=== PATIENT | male | born 1965 | race Caucasian/White ===

== ENCOUNTER 2019-07-22 08:47 | Emergency (ER) | payer BC, OTHER ==
--- OUTSIDE RECORDS SUMMARY | 2019-07-22 08:57 | XMS REPORT | Summary of Care ---
:1965 Author Organization [facility] Address [address] [id number] Care Team Providers Name Role Phone Pcp, No Primary Care Provider Unavailable Encounter Details Date Type Department Care Team Description 05/27/2019 Hospital Encounter [facility] Clinical Status post simultaneous kidney and pancreas transplant; Pathology at Kidney replaced by transplant; [facility] Pancreas replaced by transplant; [address] Encounter for long-term (current) use of other medications; [place] [address] Primary immune deficiency disorder; [phone] Chronic kidney disease, stage V Allergies No Known Allergiesdocumented as of this encounter (statuses as of 05/28/2019) Medications Medication Sig Dispensed Refills Start Date End Date Status Cholecalciferol Take 400 Units 0 Active (VITAMIN D) 400 UNITS by mouth daily. tablet Mycophenolate Mofetil Take 4 capsules 720 capsule 3 04/04/2019 04/03/2020 Active 250 MG Oral Capsule by mouth Two (CELLCEPT) Times Daily predniSONE 5 MG Oral Take 1 tablet 90 tablet 3 04/04/2019 04/03/2020 Active Tablet (DELTASONE) by mouth daily Tacrolimus 1 MG Oral Take 3 capsules 540 capsule 3 04/04/2019 04/03/2020 Active Capsule (PROGRAF) by mouth Two Times Daily documented as of this encounter (statuses as of 05/28/2019) Active Problems Problem Noted Date Sepsis 11/18/2016 Status post simultaneous kidney and pancreas transplant 03/14/2016 Hypertension 12/08/2015 Failed kidney transplant 12/08/2015 Pancreas transplanted 11/1995 pancreatic enzymes empty into bladder 12/08/2015 ESRD (end stage renal disease) on dialysis secondary to DM typeI failed 2015 renal transplant Secondary hyperparathyroidism (of renal origin) 12/08/2015 Chronic rejection of kidney and pancreas 2012 Diabetes mellitus type I Overview: no known retinopath, + neurogenic bladder Hypercholesterolemia Kidney stone Neurogenic bladder Overview: requires self cath documented as of this encounter (statuses as of 05/28/2019) Resolved Problems Problem Noted Date Resolved Date Pre-transplant evaluation for kidney and pancreas transplant 03/12/201603/14 documented as of this encounter (statuses as of 05/28/2019) Immunizations Name Administration Dates Next Due Influenza Quad IM Pres Free (0.5 mL dose) 05/27/2019 05/27/2020 documented as of this encounter Social History Tobacco Use Types Packs/Day Years Used Date Former Smoker Cigarettes 1 15 Smokeless Tobacco: Former User Quit: 05/22/1995 Alcohol Use Drinks/Week oz/Week Comments No 0 Standard drinks or equivalent 0.0 very rarely due to fluid restriction for dialysis Sex Assigned at Date Recorded Not on file Job Start Date Occupation Industry Not on file Not on file Not on file Travel History Travel Start Travel End No recent travel history available. documented as of this encounter Last Filed Vital Signs Not on filedocumented in this encounter Plan of Treatment Date Type Specialty Care Team Description 09/25/2019 Follow-Up Transplant Daisy Dawn, LAUREN [address] [place] [address] [phone] Name Type Priority Associated Diagnoses Date/Time Urine Culture ; Microbiology STAT Status post simultaneous 05/27/2019 8: 18 AM Urine kidney and pancreas EST transplant Kidney replaced by transplant Pancreas replaced by transplant Encounter for long-term (current) use of other medications Primary immune deficiency disorder Chronic kidney disease, stage V Name Type Priority Associated Diagnoses Order Schedule Urine Culture Microbiology Timed Status post simultaneous As Needed for 1 kidney and pancreas Occurrences starting transplant 05/27/2019 until Kidney replaced by 05/27/2019 transplant Pancreas replaced by transplant Encounter for long-term (current) use of other medications Primary immune deficiency disorder Chronic kidney disease, stage V Health Maintenance Due Date Last Done Comments MMR Vaccines (1 of 1 - 1967 Standard series) Varicella Vaccines (1 of 2 - 1967 2-dose childhood series) Pneumococcal Vaccine: 1972 Pediatrics (0 to 5 Years) and At-Risk Patients (6 to 64 Years) (1 of 3 - PCV13) DTaP,Tdap,and Td Vaccines (1 1973 - Tdap) Hepatitis B Vaccines (1 of 3 1985 - Risk 3-dose series) Colon Cancer Screening 10 yrs 2016 Pneumococcal Vaccine: 65+ 2031 Years (1 of 2 - PCV13) HIV Screening Completed 03/12/2016, 01/19/2016 Influenza Vaccine Completed 05/27/2019 HIB Vaccines Aged Out No longer eligible based on patient's age to complete this topic Hepatitis A Vaccines Aged Out No longer eligible based on patient's age to complete this topic IPV Vaccines Aged Out No longer eligible based on patient's age to complete this topic documented as of this encounter Procedures Procedure Name Priority Date/Time Associated Diagnosis Comments URINE RANDOM TP/CRE STAT 05/27/2019 8:33 Status post Results for this RATIO AM EST simultaneous kidney procedure are in and pancreas the results transplant section. Kidney replaced by transplant Pancreas replaced by transplant Encounter for long-term (current) use of other medications Primary immune deficiency disorder Chronic kidney disease, stage V URINALYSIS WITH STAT 05/27/2019 8:33 Status post Results for this MICROSCOPIC AM EST simultaneous kidney procedure are in and pancreas the results transplant section. Kidney replaced by transplant Pancreas replaced by transplant Encounter for long-term (current) use of other medications Primary immune deficiency disorder Chronic kidney disease, stage V DSA SCREEN, HOLD STAT 05/27/2019 8:20 Status post Results for this AM EST simultaneous kidney procedure are in and pancreas the results transplant section. TACROLIMUS TROUGH STAT 05/27/2019 8:20 Status post Results for this AM EST simultaneous kidney procedure are in and pancreas the results transplant section. Kidney replaced by transplant Pancreas replaced by transplant Encounter for long-term (current) use of other medications Primary immune deficiency disorder Chronic kidney disease, stage V CBC AND DIFFERENTIAL STAT 05/27/2019 8:20 Status post Results for this AM EST simultaneous kidney procedure are in and pancreas the results transplant section. Kidney replaced by transplant Pancreas replaced by transplant Encounter for long-term (current) use of other medications Primary immune deficiency disorder Chronic kidney disease, stage V PHOSPHORUS LEVEL STAT 05/27/2019 8:20 Status post Results for this AM EST simultaneous kidney procedure are in and pancreas the results transplant section. Kidney replaced by transplant Pancreas replaced by transplant Encounter for long-term (current) use of other medications Primary immune deficiency disorder Chronic kidney disease, stage V MAGNESIUM LEVEL STAT 05/27/2019 8:20 Status post Results for this AM EST simultaneous kidney procedure are in and pancreas the results transplant section. Kidney replaced by transplant Pancreas replaced by transplant Encounter for long-term (current) use of other medications Primary immune deficiency disorder Chronic kidney disease, stage V LIPASE LEVEL STAT 05/27/2019 8:20 Status post Results for this AM EST simultaneous kidney procedure are in and pancreas the results transplant section. Kidney replaced by transplant Pancreas replaced by transplant Encounter for long-term (current) use of other medications Primary immune deficiency disorder Chronic kidney disease, stage V AMYLASE LEVEL STAT 05/27/2019 8:20 Status post Results for this AM EST simultaneous kidney procedure are in and pancreas the results transplant section. Kidney replaced by transplant Pancreas replaced by transplant Encounter for long-term (current) use of other medications Primary immune deficiency disorder Chronic kidney disease, stage V BASIC METABOLIC PANEL STAT 05/27/2019 8:20 Status post Results for this AM EST simultaneous kidney procedure are in and pancreas the results transplant section. Kidney replaced by transplant Pancreas replaced by transplant Encounter for long-term (current) use of other medications Primary immune deficiency disorder Chronic kidney disease, stage V documented in this encounter Results Urinalysis with microscopic (05/27/2019 8:33 AM EST) Color Yellow [facility] Pathology Clarity Cloudy [facility] Clin Pathology Specific [place] 1.014 1.003 - 1.030 [facility] PH Urine 6.0 5.0 - 8.0 [facility] Pathology Total Protein UA 30 (A) Negative mg/dL [facility]ology Glucose UA Negative Negative mg/dL [facility] Clin Pathology Ketone Urine Negative Negative mg/dL [facility]ology Bilirubin Negative Negative [facility] Clin Pathology Hemoglobin, Urine 2+ (A) Negative [facility] Pathology Leukocyte Esterase 3+ (A) Negative [place]/uL [facility] Pathology Nitrite Positive (A) Negative [facility] Pathology WBC 313 (H) 0 - 5 /HPF [facility] Clin Pathology RBC 34 (H) 0 - 3 /HPF [facility] Clin Pathology Bacteria, UA 1+ (A) None /HPF [facility] Clin Pathology Squam Epithel, UA <1 (A) None /HPF [facility] Clin Pathology Mucus, UA Trace (A) None /LPF [facility] Clin Pathology Specimen Urine Performing Organization Address City/State/Zipcode Phone Number [facility] CLINICAL PATHOLOGY [address] [place] [address] [facility] Clin [address] [place] [address] Pathology Total Protein/Creatine Ratio, Urine, Random (05/27/2019 8:33 AM EST) Total Protein, Urine 34 mg/dl [facility] Clin Pathology Urinary Creat 69.8 mg/dL [facility] Clin Pathology Urinary Prot/Creat 0.49 mg/mg{creat} [facility] Ratio Clin Pathology Specimen Urine Performing Organization Address [facility] Phone Number [facility] CLINICAL PATHOLOGY [address] [place] [address] [facility] Clin [address] [place] [phone] Pathology DSA SCREEN, HOLD (05/27/2019 8:20 AM EST) DSA Screen, Hold Specimen Held For [facility] CLINICAL PATHOLOGY Specimen Serum Performing Organization Address [facility] Phone Number [facility] CL[facility]ICAL PATHOLOG[facility] [address] [place] [address] Amylase (05/27/2019 8:20 AM EST) Amylase 115 (H) 28 - 103 U/L [facility] Pathology Specimen Plasma Performing Organization Address [facility] Phone Number [facility] CLINICAL PATHOLOGY [address] [place] [address] [facility] [address] [place] [address] Pathology BMP Basic metabolic panel (05/27/2019 8:20 AM EST) Bicarbonate 22 22 - 29 mmol/L [facility] Clin Pathology Chloride 103 98 - 107 mmol/L [facility] Clin Pathology Creatinine 1.44 (H) 0.70 - 1.20 [facility] mg/dL Univ Clin Pathology Glucose 83 70 - 140 mg/dL [facility] Clin Pathology Potassium 4.7 3.4 - 5.1 [facility] mmol/L Univ Clin Pathology Sodium 139 136 - 145 [facility] mmol/L Univ Clin Pathology Blood Urea Nitrogen 28 (H) 6 - 20 mg/dL [facility] Anion Gap 14 8 - 15 mmol/L [facility] Clin Pathology Osmolality, Irvin 292 275 - 300 [facility] mosm/kg Univ Clin Pathology BUN/Cre Ratio 19 [facility] Clin Pathology Calcium 9.4 8.6 - 10.0 [facility] mg/dL Univ Clin Pathology GFR Non 54 (L) >60 [facility] [place] 2009 CDK-EPI mL/min/1.73m2 Univ Clin Pathology GFR 63 >60 [facility] 2009 CKD-EPI mL/min/1.73m2 [facility] Clin Pathology Specimen Plasma Performing Organization Address City/State/Zipcode Phone Number [facility] CLINICAL PATHOLOGY [address] [place] [address] [facility] [address] [place] [address] Pathology CBC and differential (05/27/2019 8:20 AM EST) White Blood Cell 4.9 4 - 10 [facility] 10*3/uL Univ Clin Pathology Red Blood Cell 5.40 4.6 - 6.1 [facility] 10*6/uL Univ Clin Pathology Hemoglobin 15.9 13.5 - 18 [facility] g/dL Univ Clin Pathology Hematocrit 48.5 41 - 53 % [facility] Clin Pathology Mean Cell Volume 89.8 80 - 96 fL [facility] Clin Pathology Mean Cell Hemoglobin 29.5 27 - 33 pg [facility] Clin Pathology Mean Cell Hgb Conc 32.8 32.0 - 36.0 [facility] g/dL Univ Clin Pathology Red Cell Dist Width 15.0 (H) 11.5 - 14.5 % [facility] Clin Pathology Platelet Count 166 150 - 400 [facility] 10*3/uL Univ Clin Pathology Differential Type Automated Diff [facility] Clin Pathology Neutrophil 78 % [facility] Lymphocyte 7 % [facility]ology Monocyte 12 % [facility]ology Eosinophil 2 % [facility] Pathology Basophil 1 % [facility] Clin Pathology Abs Neutrophil 3.87 1.8 - 7.0 [facility] 10*3/uL Univ Clin Pathology Abs Lymphocyte 0.36 (L) 1.2 - 4.0 [facility] 10*3/uL Univ Clin Pathology Abs Monocyte 0.59 0 - 0.8 [facility] 10*3/uL Univ Clin Pathology Abs Eosinophil 0.09 0 - 0.5 [facility] 10*3/uL Univ Clin Pathology Abs Basophil 0.04 0 - 0.2 [facility] 10*3/uL Univ Clin Pathology Nucleated Red Blood 0 0 - 0 [facility] Cells /100{WBCs} Univ Clin Pathology Specimen EDTA Whole Blood Performing Organization Address [facility] Phone Number [facility] [address] [place] [address] [facility] [address] [place] [address] Pathology Lipase (05/27/2019 8:20 AM EST) Lipase 25 13 - 60 U/L [facility] Clin Pathology Specimen Plasma Performing Organization Address [facility] Phone Number [facility] PATHOLOG[facility] [address] [place] [address] [phone] [facility] [address] [place] [phone] Pathology Magnesium (05/27/2019 8:20 AM EST) Magnesium 1.6 1.6 - 2.6 mg/dL [facility] Clin Pathology Specimen Plasma Performing Organization Address [facility] Phone Number [facility] CL[facility]ICAL PATHOLOG[facility] [address] [place] [address] [facility] [address] [place] [phone] Pathology Phosphorus (05/27/2019 8:20 AM EST) Phosphorus 3.1 2.5 - 4.5 mg/dL [facility] Clin Pathology Specimen Plasma Performing Organization Address [facility] Phone Number [facility] CL[facility] [address] [place] [address] [facility] [address] [place] [address] Pathology Tacrolimus Trough (05/27/2019 8:20 AM EST) [id number] 10.9 ng/mL [facility] Comment: Clin Pathology Renal Transplant Target Values Immediate post-transplant: 10 - 15 ng/mL First 6 months: 6 - 15 ng/mL Greater than 6 months: 6 - 15 ng/mL Specimen EDTA Whole Blood Performing Organization Address City/State/Zipcode Phone Number [facility] CLINICAL PATHOLOGY [address] [place] [address] [facility] [address] [place] [address] Pathology documented in this encounter Visit Diagnoses Diagnosis Status post simultaneous kidney and pancreas transplant Kidney replaced by transplant Pancreas replaced by transplant Encounter for long-term (current) use of other medications Primary immune deficiency disorder Other specified disorders involving the immune mechanism Chronic kidney disease, stage V Chronic kidney disease, Stage V documented in this encounter Additional Health Concerns Infection Noted Time Resolved Time MRSA (Methicillin Resistant Staphylococcus 03/15/2016 8:20 AM EDT aureus) documented as of this encounter
[2019-07-22 09:25] VITALS: BP 147/89
--- NOTE | 2019-07-22 09:37 | UC ---
Respiratory Complaint HPI - HPI Summary HPI Summary: 54-year-old male who has had cold symptoms since Monday with nonproductive cough and some wheezing. He is a smoker. - History of Current Complaint Chief Complaint: UCGeneralIllness Stated Complaint: COUGH Time Seen by Provider: 07/22/19 09:17 Hx Obtained From: Patient Onset/Duration: Gradual Onset Severity Initially: Moderate Severity Currently: Mild Pain Intensity: 0 Character: Cough: Nonproductive Alleviating Factors: Nothing Associated Signs And Symptoms: Positive: URI, Nasal Congestion - Allergies/Home Medications Allergies/Adverse Reactions: Allergies Allergy/AdvReac Type Severity Reaction Status Date / Time No Known Allergies Allergy Verified 07/22/19 09:16 Home Medications: Home Medications Albuterol HFA INHALER* [Ventolin HFA Inhaler*] 2 puff INH Q4H PRN 5 Days #1 mdi 07/22/19 [Rx] Benzonatate CAP* [Tessalon 100 MG CAP*] 100 mg PO TID PRN #21 cap 07/22/19 [Rx] Dextromethorphan Polistirex [Delsym] 1 dose PO ONCE 07/22/19 [History Confirmed 07/22/19] Dm/Acetaminophen/Doxylamine [Nighttime Cold-Flu Rlf Sftgl] 1 dose PO ONCE [History Confirmed 07/22/19] Mycophenolate Mofetil [Cellcept] 1,000 mg PO BID 07/22/19 [History Confirmed 07/11] Tacrolimus [Tacrolimus 1 MG-] 3 mg PO BID 07/22/19 [History Confirmed 07/22/19] predniSONE [Prednisone 5 MG TAB] 5 mg PO DAILY 07/22/19 [History Confirmed 07/21] PMH/Surg Hx/FS Hx/Imm Hx Previously Healthy: Yes GI/ History: Renal Disease - Surgical History Surgical History: Yes Surgery Procedure, Year, and Place: Kidney and pancreas transplant 1995, 2015. bilateral dialysis fistuals - neither are working - Family History Known Family History: Positive: Unknown - Social History Lives: With Family Alcohol Use: None Substance Use Type: None Smoking Status (MU): Heavy Every Day Tobacco Smoker Amount Used/How Often: 1 ppd Review of Systems All Other Systems Reviewed And Are Negative: Yes ENT: Positive: Nasal Discharge, Sinus Congestion Respiratory: Positive: Cough - Nonproductive cough Is Patient Immunocompromised?: No Physical Exam Triage Information Reviewed: Yes Appearance: Well-Appearing, No Pain Distress, Well-Nourished Vital Signs: Initial Vital Signs Temp 98 F 07/22/19 09:18 Pulse 95 07/22/19 09:18 Resp 18 07/22/19 09:18 BP 147/89 07/22/19 09:18 Pulse Ox 97 07/22/19 09:18 Vital Signs Reviewed: Yes Eyes: Positive: Conjunctiva Clear ENT: Positive: Pharynx normal, Nasal congestion, Nasal drainage - Clear nasal coryza, TMs normal, Uvula midline Neck: Positive: Supple, Nontender, No Lymphadenopathy Respiratory: Positive: No respiratory distress, No accessory muscle use, Rhonchi , Wheezing - Mild rhonchi with one small expiratory wheeze with forced expiration left lower lobe posteriorly. Cardiovascular: Positive: RRR, No Murmur, Pulses Normal, Brisk Capillary Refill Musculoskeletal Exam: Normal Neurological Exam: Normal Psychological Exam: Normal Skin Exam: Normal Respiratory Course/Dx - Course Course Of Treatment: Duoneb tx: The patient had complete clearing of his lung gilbert with the DuoNeb treatment and feels like he is taking better breath. At this point in time I feel this is a viral upper respiratory illness. He was advised to stop smoking. He would like to try an albuterol inhaler as opposed to an increase in prednisone, which he takes 5 mg daily because of his history of kidney and pancreas transplantation. I don't feel at this point he needs an antibiotic however he is to get rechecked in a few days if he has any worsening symptoms or no improvement. The patient is agreeable to this plan of action. 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 Patient does not appear ill and he is nontoxic at this point in time. - Differential Dx/Diagnosis Provider Diagnosis: Bronchitis Discharge ED - Sign-Out/Discharge Documenting (check all that apply): Patient Departure All imaging exams completed and their final reports reviewed: No Studies - Discharge Plan Condition: Good Disposition: HOME Prescriptions: Albuterol HFA INHALER* [Ventolin HFA Inhaler*] 2 puff INH Q4H PRN 5 Days #1 mdi PRN Reason: Cough Benzonatate CAP* [Tessalon 100 MG CAP*] 100 mg PO TID PRN #21 cap PRN Reason: Cough Patient Education Materials: Acute Bronchitis (ED) Referrals: [facility] [Outside] No Primary Care Phys,NOPCP [Primary Care Provider] - Additional Instructions: Increase fluids, use your albuterol inhaler 2 puffs every 4-6 hours while awake. Definite follow-up in 3 or 4 days if no improvement or if worsening symptoms. Stop smoking - Billing Disposition and Condition Condition: GOOD Disposition: Home
[2019-07-22] MEDS ORDERED: Albuterol/Ipratropium NEB.SOL* Albuterol 2.5 MG/Ipratropium 0.5 MG 3 ML INH ONE (09:41)
== END 2019-07-22 10:14 | disposition home or self-care (01) ==
LOC: UCCORT 08:47
DX: J40 Bronchitis, not specified as acute or chronic (principal); F17.210 Nicotine dependence, cigarettes, uncomplicated; Z94.0 Kidney transplant status; Z94.83 Pancreas transplant status; Z99.2 Dependence on renal dialysis; Z79.899 Other long term (current) drug therapy
CPT/HCPCS: 99202; A9270-GY; G0463

== ENCOUNTER 2019-08-06 07:34 | Emergency (ER) | payer OTHER ==
[2019-08-06 08:02] VITALS: BP 155/102
--- NOTE | 2019-08-06 08:44 | UC ---
Respiratory Complaint HPI - HPI Summary HPI Summary: pain under ribs x 3 days pain is 7 out 10 , worse by lying down , better with sitting up an leaning forward denies and radiation of the pain , had bronchitis 2/ 3 weeks ago, with a lot of coughing cough is better but having sever pain under both rib cage , denies any chest pain , no sob no fever, no chills , no n/v/d/c - History of Current Complaint Chief Complaint: UCGeneralIllness Stated Complaint: PAIN UNDER RIBS Time Seen by Provider: 08/06/19 07:53 Hx Obtained From: Patient Onset/Duration: Gradual Onset, Lasting Days - 3, Still Present Timing: Constant Severity Initially: Moderate Severity Currently: Severe Pain Intensity: 7 Character: Cough: Nonproductive Aggravating Factors: Other - lying down Alleviating Factors: Other - sitting up Associated Signs And Symptoms: Negative: Dyspnea, Fever, Chills, Wheezing, URI, Nasal Congestion - Allergies/Home Medications Allergies/Adverse Reactions: Allergies Allergy/AdvReac Type Severity Reaction Status Date / Time No Known Allergies Allergy Verified 08/06/19 07:51 Home Medications: Home Medications Albuterol HFA INHALER* [Ventolin HFA Inhaler*] 2 puff INH Q4H PRN 5 Days #1 mdi 07/22/19 [Rx Confirmed 08/06/19] Benzonatate CAP* [Tessalon 100 MG CAP*] 100 mg PO TID PRN #21 cap 07/22/19 [Rx Confirmed 08/06/19] Mycophenolate Mofetil [Cellcept] 1,000 mg PO BID 07/22/19 [History Confirmed ] Tacrolimus [Tacrolimus 1 MG-] 3 mg PO BID 07/22/19 [History Confirmed 08/06/19] predniSONE [Prednisone 5 MG TAB] 5 mg PO DAILY 07/22/19 [History Confirmed 08/05] PMH/Surg Hx/FS Hx/Imm Hx - Additional Past Medical History Additional PMH: kidney and pancreas transplant [ End ] Endocrine History: Diabetes Cardiovascular History: Hypertension - Surgical History Surgical History: Yes Surgery Procedure, Year, and Place: Kidney and pancreas transplant 1995, 2015. bilateral dialysis fistuals - neither are working - Family History Known Family History: Positive: Unknown, Non-Contributory - Social History Alcohol Use: None Substance Use Type: None Smoking Status (MU): Heavy Every Day Tobacco Smoker Type: Cigarettes Amount Used/How Often: 1 ppd Household Exposure Type: Cigarettes Review of Systems All Other Systems Reviewed And Are Negative: Yes Is Patient Immunocompromised?: No Physical Exam Triage Information Reviewed: Yes Appearance: Well-Appearing, No Pain Distress, Obese Vital Signs: Initial Vital Signs Temp 97.9 F 08/06/19 07:55 Pulse 91 08/06/19 07:55 Resp 18 08/06/19 07:55 BP 155/102 08/06/19 07:55 Pulse Ox 98 08/06/19 07:55 Vital Signs Reviewed: Yes Eye Exam: Normal Eyes: Positive: Conjunctiva Clear ENT: Positive: Normal ENT inspection, Hearing grossly normal, Pharynx normal Neck: Positive: Supple, Nontender, No Lymphadenopathy Respiratory: Positive: Chest non-tender, Lungs clear, Normal breath sounds Cardiovascular: Positive: RRR, No Murmur, Pulses Normal Abdominal Exam: Normal Abdomen Description: Positive: Nontender, Soft. Negative: CVA Tenderness (R), CVA Tenderness (L), Distended, Guarding Bowel Sounds: Positive: Present Skin Exam: Normal Diagnostics - Radiology No standard instances Radiology Interpretation Completed By: Radiologist Summary of Radiographic Findings: us Aorta: no AAA. chest xray : NAD - EKG Cardiac Rate: NL Cardiac Rhythm: Sinus: Normal Ectopy: None ST Segment: Normal Respiratory Course/Dx - Course Course Of Treatment: htn: monitor your bp daily , follow up with your pcp - Differential Dx/Diagnosis Provider Diagnosis: Pleurisy, Hypertension Discharge ED - Sign-Out/Discharge Documenting (check all that apply): Patient Departure All imaging exams completed and their final reports reviewed: Yes - Discharge Plan Condition: Stable Disposition: HOME Patient Education Materials: Pleurisy (ED) Referrals: No Primary Care Phys,NOPCP [Primary Care Provider] - 5 Days - Billing Disposition and Condition Condition: STABLE Disposition: Home
== END 2019-08-06 09:29 | disposition home or self-care (01) ==
LOC: UCCORT 07:34
DX: I10 Essential (primary) hypertension (principal); R09.1 Pleurisy; E11.9 Type 2 diabetes mellitus without complications; F17.210 Nicotine dependence, cigarettes, uncomplicated; Z94.0 Kidney transplant status; Z94.83 Pancreas transplant status
CPT/HCPCS: 71046; 76775; 93005; 99211; G0463